=== PATIENT | male | born 1955 | race Caucasian/White ===

== ENCOUNTER 2021-01-27 23:42 | Inpatient (IN) ==
[2021-01-28 01:06] LABS: Partial Thromboplastin Ratio 1.1; Prothrombin Time 10.4 Seconds (9.0-12.0)
[2021-01-28] MEDS ORDERED: cefTRIAXone SODIUM 2,000 MG/70 ML BAG IV STA (01:06)
[2021-01-28 01:13] LABS: Albumin Level 3.7 gm/dl (3.4-5.0); BUN Creatinine Ratio 19.7 (10-20); Calcium 9.3 mg/dl (8.5-10.1); Creatinine Clr Calc Pharmacy 103.4 ml/min; Est GFR (African American) 98.3 ml/min; Est GFR (Non-African American) 84.9 ml/min; Potassium 3.9 mmol/L (3.5-5.1)
--- NOTE | 2021-01-28 01:22 | Emergency Department Note ---
History of Present Illness General Chief complaint: Shortness of Breath/Dyspnea Stated complaint: PNEUMONIA - SOB Time Seen by Provider: 01/28/21 00:57 Source: patient Mode of arrival: ambulatory Limitations: no limitations History of Present Illness Provider complaint: trouble breathing Onset (ago): day(s) 4 Associated symptoms: + loss of appetite, + malaise and + shortness of breath; no chest pain, no cough, no fever/chills, no headaches, no nausea/vomiting or no syncope Treatments prior to arrival: none This is a 65-year-old male presents emergency department with increased shortness of breath of the last 4 days. Patient denies fevers, chills, nasal congestion, rhinorrhea, or cough. He denies any accompanying chest pain or pressure. Patient states he did see his PCP today and was sent for outpatient labs and a chest x-ray. Patient states he was told the chest x-ray showed pneumonia. Patient is still awaiting the results of his outpatient Covid test. Patient states he was at a [employer] over the weekend with approximately 150 young people. He states no one seemed overtly ill there. He denies any prior history of tobacco abuse, asthma, or COPD. Patient states he takes medication for blood pressure and swelling in his legs. He states the swelling is not been worse recently. He states his appetite has been diminished, however he is still eating and drinking. Patient states he feels markedly improved with the oxygen in place. Oxygen placed on the patient by nursing staff as his initial room air saturation was 84%. Patient states shortness of breath was worse with exertion and worse trying to lay flat at night to sleep. No prior history of CHF or VA. Pt seen during a time of high acuity and national emergency pandemic while wearing PPE. Home Medications Medication Instructions Recorded Confirmed Type aspirin 81 mg tablet,delayed 81 mg PO HS 01/28/21 01/28/21 History release atorvastatin 20 mg tablet 20 mg PO HS 01/28/21 01/28/21 History losartan 50 mg-hydrochlorothiazide 1 tab PO QAM 01/28/21 01/28/21 History 12.5 mg tablet Allergies Allergy/AdvReac Type Severity Reaction Status Date / Time Penicillins Allergy Unknown HAPPENED Verified 01/28/21 01:25 AN SMALL CHILD Past Med/Surg History Social History Smoking Status: Never smoker Hx Alcohol Use: No Hx Substance Use: No Preferred Language: Swedish Communication Ability: Effective Automatic Trimming Sewer Required: No Beliefs That Will Affect Care: None Current Living Situation: Spouse Other Information That Helps Us Care for You: No Feels Safe at Home: Yes Safety Concerns: Feels Safe At This Time Assistive Devices: None Review of Systems A total of 10 systems reviewed and were otherwise negative All systems reviewed & are unremarkable except as noted in HPI & below Physical Exam Vital Signs Vital Signs - 24 hr 01/27/21 23:45 01/28/21 01:30 01/28/21 02:17 Temperature 36.9 C Temperature Source Temporal Artery Scan Pulse Rate 116 H 102 H Pulse Rate from SpO2 Sensor 101 H Respiratory Rate 22 22 Respiratory Effort / Characteristics Non-Labored Respiratory Depth Normal Respiratory Pattern Regular Blood Pressure 147/92 H Blood Pressure Mean 110 Pulse Oximetry 84 L 88 L 92 Oxygen Delivery Method Room Air Nasal Cannula Oxymask Oxymask Oxygen Flow Rate 4 9 Sepsis Recent Fever Within 48 Hours No Sepsis New/Unexplained Change in Mental Status N/A Sepsis Action Taken by Nursing No Action Required Oxygen Flow Rate - Titration 8 Fraction of Inspired Oxygen - Titration Pulse Oximetry Post Tiitration 92 01/28/21 02:20 01/28/21 02:24 01/28/21 02:30 Temperature Temperature Source Pulse Rate 99 H 101 H Pulse Rate from SpO2 Sensor 99 H 99 H Respiratory Rate 19 35 H Respiratory Effort / Characteristics Respiratory Depth Respiratory Pattern Blood Pressure 155/94 H Blood Pressure Mean 114 Pulse Oximetry 94 96 95 Oxygen Delivery Method Oxymask Oxymask Oxymask Oxygen Flow Rate 6 9 6 Sepsis Recent Fever Within 48 Hours Sepsis New/Unexplained Change in Mental Status Sepsis Action Taken by Nursing Oxygen Flow Rate - Titration Fraction of Inspired Oxygen - Titration 6 Pulse Oximetry Post Tiitration 94 GENERAL: alert, well appearing, well nourished, no distress, non-toxic, nasal cannula in place EYE EXAM: normal conjunctiva, PERRL and EOM's grossly intact OROPHARYNX: no exudate, no erythema, lips, buccal mucosa, and tongue normal and mucous membranes are moist NECK: supple, no nuchal rigidity, no adenopathy, non-tender LUNGS: Clear to auscultation. Normal chest wall mechanics, no w/r/r HEART: no murmurs, S1 normal and S2 normal ABDOMEN: abdomen soft, non-tender, normo-active bowel sounds, no masses, no rebound or guarding. BACK: Back is symmetrical on inspection and there is no deformity, no midline tenderness, no CVA tenderness. SKIN: no rashes and no bruising UPPER EXTREMITIES: upper extremities are grossly normal. FROM, nml pulses b/l. LOWER EXTREMITIES: No pitting edema. FROM, nml pulses b/l. NEURO EXAM: Normal sensorium, cranial nerves II-XII grossly intact, normal speech, no gross weakness of arms, no gross weakness of legs. Gross sensation intact. Course Course 0142: Outpatient records obtained from earlier today show an outpatient chest x- ray, 2 view, read by outside radiology as an elevated left hemidiaphragm, hazy bibasilar opacities which may represent pneumonia. Correlate with Covid testing. Outpatient chest EKG was also reviewed, and labs of which were only partially resulted. Patient's BMP was normal with the exception of an elevated glucose at 145. Other labs still pending. 0205: Case discussed with Dr. Brooks, [facility]. Patient's oxygenation is improved here on anoxia mask. Patient denies any chest pain. Several additional labs are still pending as the lab chemistry analyzer machine is currently malfunctioning and unable to run. D-dimer was added on late and is still pending as a result of this. 0430: Received call from outside radiology group who read the patient's CT of the chest as ordered by the hospitalist. CT positive for bilateral PEs and evidence of right heart strain. 0445: Patient updated on PE diagnosis and CT findings. Patient continues to deny chest pain or dizziness, states he feels markedly improved with the oxygen in place. Administered Medications Heparin Sodium/Dextrose (Heparin Sodium/Dextrose) 25,000 units in 500 mls @ 33 mls/hr IV .[id number] [facility]; Protocol Stop: 02/27/21 04:59 Last Titration: 01/28/21 06:42 Dose: 33 units/hr, 0.7 mls/hr Documented by: [id number] Cosigned by: [id number] Admin: 01/28/21 05:02 Dose: 1,650 units/hr, 33 mls/hr Documented by: [id number] Cosigned by: [id number] Discontinued Medications Heparin Sodium (Porcine) (Heparin Sod (Porcine) 1000 Unit/Ml) 1 units IV NOW ONE Stop: 01/28/21 04:48 Last Admin: 01/28/21 05:01 Dose: 7,000 units Documented by: [id number] Cosigned by: [id number] Heparin Sodium/Dextrose (Heparin Iv Adult Wt-Based Standard With Bolus Protocol) 1 ea IV NOW STA; Protocol Stop: 01/28/21 04:32 Last Admin: 01/28/21 05:03 Dose: 1 ea Documented by: [id number] Ceftriaxone Sodium (Rocephin) 2,000 mg in 70 mls @ 140 mls/hr IV NOW STA Stop: 01/28/21 01:35 Last Infusion: 01/28/21 02:40 Dose: 0 mls/hr Documented by: [id number] Admin: 01/28/21 02:10 Dose: 140 mls/hr Documented by: [id number] Methylprednisolone 20 mg/ (Syringe) 0.32 mls @ 1.5 mls/min IV NOW STA Stop: 01/28/21 02:38 Last Admin: 01/28/21 03:06 Dose: 1.5 mls/min Documented by: [id number] Lactated Ringer's (Lr) 1,000 mls @ 250 mls/hr IV .Q4H STA Stop: 01/28/21 06:36 Last Admin: 01/28/21 03:06 Dose: 250 mls/hr Documented by: [id number] Doxycycline Hyclate 100 mg/ (Dextrose) 110 mls @ 50 mls/hr IV NOW STA Stop: 01/28/21 04:46 Last Infusion: 01/28/21 06:51 Dose: 0 mls/hr Documented by: [id number] Admin: 01/28/21 03:05 Dose: 50 mls/hr Documented by: [id number] Ioversol (Optiray 320 125ml) 125 ml IV ONCE ONE Stop: 01/28/21 03:38 Last Admin: 01/28/21 03:37 Dose: 111 ml Documented by: [id number] Ipratropium Wishon (Ipratropium Wishon Neb Soln 0.02% 2.5 Ml Vial) 0.5 mg INH ONE STA Stop: 01/28/21 02:47 Last Admin: 01/28/21 03:08 Dose: 0.5 mg Documented by: [id number] Levalbuterol HCl (Levalbuterol 1.25mg/0.5ml Neb) 1.25 mg INH ONE STA Stop: 01/28/21 02:48 Last Admin: 01/28/21 03:08 Dose: 1.25 mg Documented by: [id number] Losartan Potassium (Losartan Potassium 25 Mg Tab) 25 mg PO NOW STA Stop: 01/28/21 02:44 Last Admin: 01/28/21 03:05 Dose: 25 mg Documented by: [id number] Critical Care Time Critical Care Time: Yes Total Critical Care Time: 45 Critical care of 45 min performed to assess and manage high likelihood of life- threatening hypoxia, involving labs and imaging performed with assessment to evaluate PE with RV strain diagnosis with frequent reassessment. This time includes bedside time, treatment discussions with patient/family/consultants, documentation time and excludes procedure time. Medical Decision Making Differential Diagnosis Differential diagnoses includes but is not limited to pneumonia, bronchitis, COPD/Asthma exacerbation, pneumothorax, pulmonary embolism, congestive heart failure, acute coronary syndrome Medical Records Attestation: I reviewed the patient's medical records. Home Medications Current Medication List: was personally reviewed by me Laboratory Data Attestation: I reviewed the patient's lab results. Result diagrams: 01/28/21 00:38 01/28/21 00:38 Lab Results 01/27/21 01/27/21 01/28/21 Range/Units 23:52 23:52 00:38 WBC 14.33 H (4.8-10.8) K/uL RBC 5.29 (4.7-6.1) M/uL Hgb 15.6 (14.0-18.0) g/dL Hct 45.7 (42-52) % MCV 86.4 (80-100) fL MCH 29.5 (25-34) pg MCHC 34.1 (32-36) g/dL RDW Std Deviation 42.8 (36.4-46.3) fL RDW Coeff of Efren 13.6 (11.5-14.5) % Plt Count 263 (130-400) K/uL MPV 11.0 H (7.4-10.4) fL Immature Gran % (Auto) 0.3 % Neut % (Auto) 77.3 % Lymph % (Auto) 13.4 % [place] % (Auto) 8.2 % Eos % (Auto) 0.7 % Baso % (Auto) 0.1 % Neut # (Auto) 11.07 H (1.4-6.5) K/uL Lymph # (Auto) 1.92 (1.2-3.4) K/uL [place] # (Auto) 1.17 H (0.11-0.59) K/uL Eos # (Auto) 0.10 (0-0.5) K/uL Baso # (Auto) 0.02 (0-0.2) K/uL Immature Gran # (Auto) 0.05 H (0.00-0.02) K/uL PT (9.0-12.0) Seconds INR (0.9-1.1) APTT (21.0-31.0) Seconds PTT Ratio D-Dimer (0-500) ug/L FEU Sodium (136-145) mmol/L Potassium (3.5-5.1) mmol/L Chloride (98-107) mmol/L Carbon Dioxide (21-32) mmol/L Anion Gap (3-11) BUN (7-18) mg/dl Creatinine (0.6-1.4) mg/dl Est Cr Clr Drug Dosing ml/min Est GFR ( Amer) ml/min Est GFR (Non-Af Amer) ml/min BUN/Creatinine Ratio (10-20) Glucose (70-99) mg/dl Calcium (8.5-10.1) mg/dl Magnesium (1.8-2.4) mg/dl Total Bilirubin (0.2-1) mg/dl AST (15-37) U/L ALT (12-78) U/L Alkaline Phosphatase (45-117) U/L Troponin I (0-0.045) ng/ml Total Protein (6.4-8.2) gm/dl Albumin (3.4-5.0) gm/dl Globulin (2.5-4.0) gm/dl Albumin/Globulin Ratio (0.9-2) Procalcitonin (0-0.5) ng/ml TSH (0.300-4.500) uIu/ml COVID-19 Eval Order Covid19 at [facility] SARS-CoV-2 (PCR) NEGATIVE (Negative) 01/28/21 01/28/21 01/28/21 Range/Units 00:38 00:38 02:00 WBC (4.8-10.8) K/uL RBC (4.7-6.1) M/uL Hgb (14.0-18.0) g/dL Hct (42-52) % MCV (80-100) fL MCH (25-34) pg MCHC (32-36) g/dL RDW Std Deviation (36.4-46.3) fL RDW Coeff of Efren (11.5-14.5) % Plt Count (130-400) K/uL MPV (7.4-10.4) fL Immature Gran % (Auto) % Neut % (Auto) % Lymph % (Auto) % [place] % (Auto) % Eos % (Auto) % Baso % (Auto) % Neut # (Auto) (1.4-6.5) K/uL Lymph # (Auto) (1.2-3.4) K/uL [place] # (Auto) (0.11-0.59) K/uL Eos # (Auto) (0-0.5) K/uL Baso # (Auto) (0-0.2) K/uL Immature Gran # (Auto) (0.00-0.02) K/uL PT 10.4 (9.0-12.0) Seconds INR 1.0 (0.9-1.1) APTT 28.0 (21.0-31.0) Seconds PTT Ratio 1.1 D-Dimer (0-500) ug/L FEU Sodium 138 (136-145) mmol/L Potassium 3.9 (3.5-5.1) mmol/L Chloride 107 (98-107) mmol/L Carbon Dioxide 23 (21-32) mmol/L Anion Gap 8.0 (3-11) BUN 19 H (7-18) mg/dl Creatinine 0.95 (0.6-1.4) mg/dl Est Cr Clr Drug Dosing 103.4 ml/min Est GFR ( Amer) 98.3 ml/min Est GFR (Non-Af Amer) 84.9 ml/min BUN/Creatinine Ratio 19.7 (10-20) Glucose 131 H (70-99) mg/dl Calcium 9.3 (8.5-10.1) mg/dl Magnesium 2.0 (1.8-2.4) mg/dl Total Bilirubin 0.7 (0.2-1) mg/dl AST 26 (15-37) U/L ALT 41 (12-78) U/L Alkaline Phosphatase 51 (45-117) U/L Troponin I 0.179 H* (0-0.045) ng/ml Total Protein 8.0 (6.4-8.2) gm/dl Albumin 3.7 (3.4-5.0) gm/dl Globulin 4.3 H (2.5-4.0) gm/dl Albumin/Globulin Ratio 0.9 (0.9-2) Procalcitonin < 0.05 (0-0.5) ng/ml TSH (0.300-4.500) uIu/ml COVID-19 Eval Order SARS-CoV-2 (PCR) (Negative) 01/28/21 01/28/21 Range/Units 02:00 02:02 WBC (4.8-10.8) K/uL RBC (4.7-6.1) M/uL Hgb (14.0-18.0) g/dL Hct (42-52) % MCV (80-100) fL MCH (25-34) pg MCHC (32-36) g/dL RDW Std Deviation (36.4-46.3) fL RDW Coeff of Efren (11.5-14.5) % Plt Count (130-400) K/uL MPV (7.4-10.4) fL Immature Gran % (Auto) % Neut % (Auto) % Lymph % (Auto) % [place] % (Auto) % Eos % (Auto) % Baso % (Auto) % Neut # (Auto) (1.4-6.5) K/uL Lymph # (Auto) (1.2-3.4) K/uL [place] # (Auto) (0.11-0.59) K/uL Eos # (Auto) (0-0.5) K/uL Baso # (Auto) (0-0.2) K/uL Immature Gran # (Auto) (0.00-0.02) K/uL PT (9.0-12.0) Seconds INR (0.9-1.1) APTT (21.0-31.0) Seconds PTT Ratio D-Dimer 6510 H* (0-500) ug/L FEU Sodium (136-145) mmol/L Potassium (3.5-5.1) mmol/L Chloride (98-107) mmol/L Carbon Dioxide (21-32) mmol/L Anion Gap (3-11) BUN (7-18) mg/dl Creatinine (0.6-1.4) mg/dl Est Cr Clr Drug Dosing ml/min Est GFR ( Amer) ml/min Est GFR (Non-Af Amer) ml/min BUN/Creatinine Ratio (10-20) Glucose (70-99) mg/dl Calcium (8.5-10.1) mg/dl Magnesium (1.8-2.4) mg/dl Total Bilirubin (0.2-1) mg/dl AST (15-37) U/L ALT (12-78) U/L Alkaline Phosphatase (45-117) U/L Troponin I 0.215 H* (0-0.045) ng/ml Total Protein (6.4-8.2) gm/dl Albumin (3.4-5.0) gm/dl Globulin (2.5-4.0) gm/dl Albumin/Globulin Ratio (0.9-2) Procalcitonin (0-0.5) ng/ml TSH 1.480 (0.300-4.500) uIu/ml COVID-19 Eval Order SARS-CoV-2 (PCR) (Negative) Imaging Data My Impression: X-ray: I interpreted the following studies. Chest: A single view study of the chest was reviewed and was negative for cardiomegaly, focal infiltrate, effusion, pulmonary edema, or wide mediastinum. Possible evolving LLL infiltrate. Radiologist's Impression: Chest X-Ray 01/27/21 23:48 SINGLE VIEW CHEST CLINICAL HISTORY: Dyspnea. FINDINGS: An AP, portable, upright chest radiograph is obtained. No prior studies are available for comparison at the time of dictation. The heart is mildly enlarged. The pulmonary vasculature is noncongested. There is elevation of the left hemidiaphragm and bibasilar atelectasis. The lungs and pleural spaces are otherwise clear. No pneumothorax is seen. The bony thorax is grossly intact. IMPRESSION: Mild cardiomegaly with no acute cardiopulmonary abnormality. ACT 112: Negative or not required by law. Electronically signed by: Toro Quan M.D. 01/28/2021 7:16 AM CTA chest: No prior exam for comparison. Pulmonary embolus starting at the level of the distal right pulmonary artery extending into the proximal upper lobe, middle lobe and lower lobe pulmonary artery and into some of the proximal segmental pulmonary arteries. On the left, there is a pulmonary embolus in the distal left pulmonary artery extending into the left upper lobe and left lower lobe pulmonary arteries and into some of the mid and distal segmental pulmonary arteries in the left upper lobe and left lower lobe. The RV/LV ratio is 1.4 raising the concern for right-sided cardiac strain. The visualized upper abdominal structures are unremarkable. Left lower lobe atelectasis otherwise no acute cardiopulmonary disease. No pleural effusion or pneumothorax. Normal cardiac size with coronary artery calcifications. Multilevel degenerative disease of the spine. Radiologist: Justa Sanchez MD ECG Data Attestation: I personally reviewed and interpreted this ECG as follows: Indication: + SOB/dyspnea Rate (beats per minute): 108 Rhythm: + sinus tachycardia ECG Intervals/blocks: + First degree AV block, + Normal QRS and + Prolonged QT ECG [place]: + Normal ECG ST segments: + T-wave inversions (III, aVF) MDM Narrative This is a 65-year-old male who presents due to concern for increased shortness of breath. Patient found to be hypoxic on arrival and was immediately placed on supplemental oxygen with marked improvement of his symptoms and oxygen level. Patient had outpatient labs and imaging performed earlier today, chest x-ray was read as pneumonia. Patient with no prior pulmonary history. Labs drawn and sent on the patient, and he was found to have an elevated white count. Given vague symptoms evolving over the week with his shortness of breath, initially I ordered IV Rocephin. However, I was unable to add azithromycin due to prolonged QT noted on his EKG. This was discussed with the hospitalist and doxycycline was added. Due to lack of other evolving URI symptoms, I added a D-dimer, un fortunately in the middle of the night the chemistry analyzer machine in the lab was unavailable and broke down, this caused a delay in obtaining the D-dimer and other CMP results. Eventually when this resulted it was elevated, and the admitting hospitalist had already added a CT of the chest when I saw it. CT results were called to me in the emergency department with significant pulmonary embolism bilaterally with evidence of right heart strain, likely explaining the patient's elevated troponin which I felt initially may be due to his tachycardia and infection. Patient continued to remain well-appearing here while maintained on supplemental oxygen via oxygen mask. Denied chest pain, dizziness, nausea. Hospitalist updated on CT findings and I added a heparin drip on the patient. Patient was updated on CT results and need for additional evaluation regarding this new finding. Patient remained hemodynamically stable in the emergency room. An order was placed for continuous cardiac monitoring. The monitor shows a rate of _97__ with _normal sinus_ rhythm. Impression & Plan Dyspnea, Hypoxia, Pulmonary embolism, bilateral, Elevated troponin Discharge Plan Visit Data Chief Complaint: Shortness of Breath/Dyspnea Stated Complaint: PNEUMONIA - SOB ED Provider: Jordyn Koch Discharge Problem: Dyspnea, Hypoxia, Pulmonary embolism, bilateral, Elevated troponin Patient Disposition: Admitted As Inpatient Condition: Good Discharge Instructions Interventions: ED Discharge Assessment Last Done: 01/28/21 05:32
[2021-01-28 01:23] LABS: Albumin Globulin Ratio 0.9 (0.9-2); Bilirubin,Total 0.7 mg/dl (0.2-1); Globulin 4.3 gm/dl (2.5-4.0); Troponin I 0.179 ng/ml (0-0.045)
[2021-01-28 01:29] LABS: Basophils # (auto) 0.02 K/uL (0-0.2); Basophils % (auto) 0.1 %; Eosinophils % (auto) 0.7 %; Hematocrit (blood only) 45.7 % (42-52); Hemoglobin 15.6 g/dL (14.0-18.0); Immature Granulocytes # (auto) 0.05 K/uL (0.00-0.02); Immature Granulocytes % (auto) 0.3 %; Lymphocytes # (auto) 1.92 K/uL (1.2-3.4); Lymphocytes % (auto) 13.4 %; Mean Corpuscular Hemoglobin 29.5 pg (25-34); Mean Corpuscular Hgb Conc 34.1 g/dL (32-36); Mean Corpuscular Volume 86.4 fL (80-100); Monocytes # (auto) 1.17 K/uL (0.11-0.59); Monocytes % (auto) 8.2 %; Neutrophils # (auto) 11.07 K/uL (1.4-6.5); Neutrophils % (auto) 77.3 %; Platelet Count 263 K/uL (130-400); RDW Coefficient of Variation 13.6 % (11.5-14.5); RDW Standard Deviation 42.8 fL (36.4-46.3); Red Blood Count 5.29 M/uL (4.7-6.1); White Blood Count 14.33 K/uL (4.8-10.8)
[2021-01-28] MEDS ORDERED: DOXYCYCLINE HYCLATE 100 MG in DEXTROSE 5% 100 ML IV STA (02:35)
[2021-01-28] MEDS ORDERED: methylPREDNISolone 20 MG in SYRINGE 0 ML IV STA (02:37)
[2021-01-28] MEDS ORDERED: LACTATED RINGER'S 1,000 ML IV STA (02:37)
[2021-01-28] MEDS ORDERED: XOPENEX/ATROVENT 1.25mg/0.5MG NEB COMBO NEB STA (02:40)
[2021-01-28] MEDS ORDERED: LOSARTAN POTASSIUM 25 MG TAB PO STA (02:43)
[2021-01-28] MEDS ORDERED: IPRATROPIUM BROMIDE NEB SOLN 0.02% 2.5 ML VIAL INH STA (02:46)
[2021-01-28] MEDS ORDERED: LEVALBUTEROL 1.25MG/0.5ML NEB INH STA (02:47)
[2021-01-28 03:20] LABS: D Dimer 6510 ug/L FEU (0-500)
[2021-01-28] MEDS ORDERED: OPTIRAY 320 125ml IV ONE (03:37)
[2021-01-28 04:31] LABS: Thyroid Stimulating Hormone 1.48 uIu/ml (0.300-4.500); Troponin I 0.215 ng/ml (0-0.045)
[2021-01-28] MEDS ORDERED: Heparin IV Adult Wt-Based Standard WITH Bolus Protocol IV STA (04:31)
[2021-01-28 04:42] LABS: Base Excess ABG -1.2 mEq/L (-9-1.8); HCO3 ABG 22 mmol/L (19-24); Oxygen Saturation ABG 94.5 % (90-95); PCO2 ABG 33 mmHg (35-46); PO2 ABG 67 mmHg (80-95); pH ABG 7.44 (7.35-7.45)
[2021-01-28] MEDS ORDERED: HEPARIN SOD (PORCINE) 1000 UNIT/ML IV ONE (04:47)
[2021-01-28 04:57] LABS: Allen Test Pos (Pos)
[2021-01-28] MEDS: HEPARIN SODIUM/DEXTROSE 25,000 UNITS/500 ML BAG IV SCH ×2 (05:02→20:35)
--- NOTE | 2021-01-28 05:58 | History & Physical Report ---
Date of Service January 28, 2021 Assessment & Plan (1) Acute hypoxemic respiratory failure: Plan: Secondary to pulmonary embolism with possible RV strain on initial CT read Unprovoked initial event Rule out LE clot as source Troponin elevation secondary to above, tachycardia hypertension, elevated secondary to anxiety/discomfort hyperlipidemia on statin Rx Hyperglycemia rule out DM PCU Supplemental O2 IV Heparin LE Dopplers rule out DVT Defer discussion regarding options for home anticoagulation to AM provider and patient. Follow troponin, TTE if with progression Check hemoglobin A1c DVT prophylaxis. IV Heparin Full code Text document was generated using [employer] voice recognition software. It may contain grammatical or spelling errors. Kindly contact undersigned for clarification of any documentation item in question. History of Present Illness Chief Complaint: Shortness of breath Primary Care Provider: Jeyson King MD History obtained from patient and records. Medical history significant for hypertension, hyperlipidemia. 4 days ago, patient noted shortness of breath worse on exertion while helping out at a family gathering at home. No cough symptoms. Although patient thinks he may have the flu. No chest pain. No leg pain/swelling. No recent illness leading to immobility or vehicular travel of prolonged duration. No unusual weight loss. No known recent COVID-19 contacts. Patient completed COVID-19 vaccination. Patient seen at PCPs office yesterday. O2 sats 90% on room air. Patient tachycardic. Outpatient CXR showed elevated left hemidiaphragm with hazy bibasilar opacities which may represent pneumonia. Outpatient COVID-19 test requested by PCP. Patient consulted ER due to worsening symptoms. Ceftriaxone given at the ER for possible sepsis. IV Heparin later initiated with note of pulmonary embolism on CT. No prior personal/known family history of blood clots as per patient account. 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 Allergies Allergy/AdvReac Type Severity Reaction Status Date / Time Penicillins Allergy Unknown HAPPENED Verified 01/28/21 01:25 AN SMALL CHILD Home Medications Medication Instructions Recorded Confirmed Type aspirin 81 mg tablet,delayed 81 mg PO HS 01/28/21 01/28/21 History release atorvastatin 20 mg tablet 20 mg PO HS 01/28/21 01/28/21 History losartan 50 mg-hydrochlorothiazide 1 tab PO QAM 01/28/21 01/28/21 History 12.5 mg tablet Past Med/Surg History Social History Smoking Status: Never smoker Hx Alcohol Use: No Hx Substance Use: No Preferred Language: Citizen Of [place] Communication Ability: Effective 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: No Beliefs That Will Affect Care: None Current Living Situation: Spouse Other Information That Helps Us Care for You: No Feels Safe at Home: Yes Safety Concerns: Feels Safe At This Time Assistive Devices: None Review of Systems Review of Systems: As per HPI, all 10 systems reviewed, all other ROS negative Physical Exam Physical Exam: GENERAL: Comfortable, obese, slightly anxious, no respiratory distress SKIN: Normal color, warm HEENT: Sunburnt face sparing periorbital areas, pink palpebral conjunctivae, no ptosis, dry buccal mucosa, nasal cannula in place NECK : Supple, short neck, no tenderness CHEST : Decreased breath sounds , no tenderness HEART : Tachycardic, no obvious murmurs ABDOMEN: Some distention, nontender EXTREMITIES : No LE swelling/tenderness, no other conspicuous deformities noted NEUROLOGIC : Coherent, no facial asymmetry, no other gross focality Results & Data Results & Data ([facility]) Vital Signs (Past 12 Hours) Vital Signs Temp Pulse Pulse Resp BP Pulse Ox 01/28/21 05:30 98 H 129/93 90 01/28/21 05:00 100 H 01/28/21 04:30 101 H 92 01/28/21 04:00 94 H 130/91 94 01/28/21 03:38 103 H 93 01/28/21 03:09 101 H 16 91 01/28/21 03:00 91 H 13 94 01/28/21 02:30 101 H 35 H 155/94 H 95 01/28/21 02:24 96 01/28/21 02:20 99 H 19 94 01/28/21 02:17 102 H 22 92 01/28/21 01:30 88 L 01/27/21 23:45 36.9 C 116 H 22 147/92 H 84 L Laboratory Results Laboratory Results WBC 14.33 K/uL (4.8-10.8) H 01/28/21 00:38 RBC 5.29 M/uL (4.7-6.1) 01/28/21 00:38 Hgb 15.6 g/dL (14.0-18.0) 01/28/21 00:38 Hct 45.7 % (42-52) 01/28/21 00:38 MCV 86.4 fL (80-100) 01/28/21 00:38 MCH 29.5 pg (25-34) 01/28/21 00:38 MCHC 34.1 g/dL (32-36) 01/28/21 00:38 RDW Std Deviation 42.8 fL (36.4-46.3) 01/28/21 00:38 RDW Coeff of Efren 13.6 % (11.5-14.5) 01/28/21 00:38 Plt Count 263 K/uL (130-400) 01/28/21 00:38 MPV 11.0 fL (7.4-10.4) H 01/28/21 00:38 Immature Gran % (Auto) 0.3 % 01/28/21 00:38 Neut % (Auto) 77.3 % 01/28/21 00:38 Lymph % (Auto) 13.4 % 01/28/21 00:38 Will % (Auto) 8.2 % 01/28/21 00:38 Eos % (Auto) 0.7 % 01/28/21 00:38 Baso % (Auto) 0.1 % 01/28/21 00:38 Neut # (Auto) 11.07 K/uL (1.4-6.5) H 01/28/21 00:38 Lymph # (Auto) 1.92 K/uL (1.2-3.4) 01/28/21 00:38 Will # (Auto) 1.17 K/uL (0.11-0.59) H 01/28/21 00:38 Eos # (Auto) 0.10 K/uL (0-0.5) 01/28/21 00:38 Baso # (Auto) 0.02 K/uL (0-0.2) 01/28/21 00:38 Immature Gran # (Auto) 0.05 K/uL (0.00-0.02) H 01/28/21 00:38 PT 10.4 Seconds (9.0-12.0) 01/28/21 00:38 INR 1.0 (0.9-1.1) 01/28/21 00:38 APTT 28.0 Seconds (21.0-31.0) 01/28/21 00:38 PTT Ratio 1.1 01/28/21 00:38 D-Dimer 6510 ug/L FEU (0-500) H* 01/28/21 02:00 ABG pH 7.44 (7.35-7.45) 01/28/21 04:29 ABG pCO2 33 mmHg (35-46) L 01/28/21 04:29 ABG pO2 67 mmHg (80-95) L 01/28/21 04:29 ABG HCO3 22 mmol/L (19-24) 01/28/21 04:29 ABG O2 Saturation 94.5 % (90-95) 01/28/21 04:29 ABG Base Excess -1.2 mEq/L (-9-1.8) 01/28/21 04:29 Georgi Test Pos (Pos) 01/28/21 04:29 Oxygen Given 6L 01/28/21 04:29 Sodium 138 mmol/L (136-145) 01/28/21 00:38 Potassium 3.9 mmol/L (3.5-5.1) 01/28/21 00:38 Chloride 107 mmol/L (98-107) 01/28/21 00:38 Carbon Dioxide 23 mmol/L (21-32) 01/28/21 00:38 Anion Gap 8.0 (3-11) 01/28/21 00:38 BUN 19 mg/dl (7-18) H 01/28/21 00:38 Creatinine 0.95 mg/dl (0.6-1.4) 01/28/21 00:38 Est Cr Clr Drug Dosing 103.4 ml/min 01/28/21 00:38 Est GFR ( Amer) 98.3 ml/min 01/28/21 00:38 Est GFR (Non-Af Amer) 84.9 ml/min 01/28/21 00:38 BUN/Creatinine Ratio 19.7 (10-20) 01/28/21 00:38 Glucose 131 mg/dl (70-99) H 01/28/21 00:38 Lactate 0.9 mmol/L (0.4-2.0) 01/28/21 04:29 Calcium 9.3 mg/dl (8.5-10.1) 01/28/21 00:38 Magnesium 2.0 mg/dl (1.8-2.4) 01/28/21 00:38 Total Bilirubin 0.7 mg/dl (0.2-1) 01/28/21 00:38 AST 26 U/L (15-37) 01/28/21 00:38 ALT 41 U/L (12-78) 01/28/21 00:38 Alkaline Phosphatase 51 U/L (45-117) 01/28/21 00:38 Troponin I 0.215 ng/ml (0-0.045) H* 01/28/21 02:02 Total Protein 8.0 gm/dl (6.4-8.2) 01/28/21 00:38 Albumin 3.7 gm/dl (3.4-5.0) 01/28/21 00:38 Globulin 4.3 gm/dl (2.5-4.0) H 01/28/21 00:38 Albumin/Globulin Ratio 0.9 (0.9-2) 01/28/21 00:38 Procalcitonin < 0.05 ng/ml (0-0.5) 01/28/21 02:00 TSH 1.480 uIu/ml (0.300-4.500) 01/28/21 02:02 COVID-19 Eval Order Covid19 at [facility] 01/27/21 23:52 SARS-CoV-2 (PCR) NEGATIVE (Negative) 01/27/21 23:[address] angio chest initial read: No prior examfor comparison. Pulmonaryembolus starting at the level of the distal right pulmonaryarteryextending into the proximal upper lobe, middle lobe and lower lobe pulmonaryarteryand into some of the proximal segmental pulmonaryarteries. On the left, there is a pulmonaryembolus in the distal left pulmonary arteryextending into the left upper lobe and left lower lobe pulmonaryarteries and into some of the mid distal segmental pulmonaryarteries in the left upper lobe and left lower lobe. The RV/LVratio is 1.4 raising the concern for a right-sided cardiac strain. The visualized upper abdominal structures are unremarkable. Left lower lobe atelectasis otherwise no acute cardiopulmonarydisease. No pleural effusion or pneumothorax. Normal cardiac size with coronaryarterycalcifications. Multilevel degenerative disease of the spine. EKG as per my interpretation: Rate 1 10, sinus tachycardia, normal axis, 1 AVB, T wave abnormalities inferior leads Code Status & VTE Plan VTE Prophylaxis Plan VTE Prophylaxis will be ordered: Yes
[2021-01-28] MEDS ORDERED: ACETAMINOPHEN 325 MG TAB PO PRN (06:15)
[2021-01-28] MEDS ORDERED: IPRATROPIUM BROMIDE NEB SOLN 0.02% 2.5 ML VIAL INH SCH (06:15)
[2021-01-28] MEDS ORDERED: LEVALBUTEROL 1.25MG/0.5ML NEB INH SCH (06:15)
[2021-01-28] MEDS ORDERED: PROMETHAZINE HCL 12.5 MG in SODIUM CHLORIDE 0.9% 50 ML IV PRN (06:15)
[2021-01-28] MEDS ORDERED: traMADol HCL 50 MG TABLET PO PRN (06:15)
--- NOTE | 2021-01-28 07:16 | CT Scan Report ---
CT ANGIOGRAM OF THE CHEST CLINICAL HISTORY: Hypoxia. Cough. Dyspnea. COMPARISON STUDY: Chest x-ray dated 01/28/2021. TECHNIQUE: Following the IV administration of 111 cc of Optiray 320, CT angiogram of the chest was pe rformed from the upper abdomen to the thoracic inlet utilizing the pulmonary embolus protocol. Images are reviewed in the axial, sagittal, and coronal planes. 3-D MIPS images are created and assessed. I V contrast was administered without complication. A dose lowering technique was utilized adhering to the principles of ALARA. The examination is motion compromised. CT DOSE: 799.10 mGy.cm FINDINGS: Thyroid: Imaged portions of the thyroid gland are normal in size and attenuation. Thoracic aorta: The thoracic aorta is normal in caliber and demonstrates 4-vessel variant arch anatom y. No dissection is seen. Pulmonary vasculature: The main pulmonary arteries are mildly dilated suggesting pulmonary artery hyp ertension. There is thrombus within the distal right main pulmonary artery. This extends into the rig ht upper, middle, and lower lobar branches. There is segmental and subsegmental pulmonary emboli with in all of these arteries. There is also thrombus within the distal left main pulmonary artery which e xtends into the left upper and left lower lobe branches. Segmental and subsegmental pulmonary emboli are seen within the left upper lobe, the left lower lobe, and the lingula. Heart: The heart is enlarged and without pericardial effusion. The coronary arteries are densely calc ified. Lungs and pleural spaces: Evaluation of the lung parenchyma is significantly degraded by motion artif act. There is elevation of the left hemidiaphragm with segmental atelectasis at the left lung base. N o airspace consolidation or pleural effusion is identified. The trachea and central airways are clear . Mediastinum: There is no mediastinal lymphadenopathy. Hilary: Clear. Axillae: There is no axillary lymphadenopathy. Upper abdomen: A small hiatal hernia is noted. Partially visualized upper abdominal viscera is within normal limits. Skeletal structures: No lytic or blastic bony lesions are seen. Degenerative change is noted in the t horacic spine. IMPRESSION: 1. Extensive bilateral pulmonary embolus as above. 2. There is no airspace consolidation or pleural effusion. 3. Cardiomegaly. 4. Additional findings as above. ACT 112: Negative or not required by law. Electronically signed by: Toro Quan M.D. 01/28/2021 7:15 AM
--- NOTE | 2021-01-28 07:17 | XRay Report ---
SINGLE VIEW CHEST CLINICAL HISTORY: Dyspnea. FINDINGS: An AP, portable, upright chest radiograph is obtained. No prior studies are available for c omparison at the time of dictation. The heart is mildly enlarged. The pulmonary vasculature is nonco ngested. There is elevation of the left hemidiaphragm and bibasilar atelectasis. The lungs and pleura l spaces are otherwise clear. No pneumothorax is seen. The bony thorax is grossly intact. IMPRESSION: Mild cardiomegaly with no acute cardiopulmonary abnormality. ACT 112: Negative or not required by law. Electronically signed by: Toro Quan M.D. 01/28/2021 7:16 AM
[2021-01-28 07:28] LABS: Estimated Average Glucose 128 mg/dl; Hemoglobin A1C 6.1 % (4.5-5.6)
--- NOTE | 2021-01-28 08:52 | Ultrasound Report ---
ULTRASOUND BILATERAL LOWER EXTREMITY VENOUS CLINICAL HISTORY: Pulmonary embolus. COMPARISON STUDY: No priors. TECHNIQUE: Real-time, grayscale, and color Doppler sonography of the deep veins of the right and left lower extremity was performed from the inguinal crease to the calf. Compression and augmentation wer e utilized. FINDINGS: Right lower extremity: There is no sonographic evidence of deep venous thrombosis in the right lower extremity. The common femoral, superficial femoral, and popliteal veins are patent and normally compr essible. The greater saphenous vein and the profunda femoris vein at the junction with the common fem oral vein are clear. The visualized calf veins are patent. Left lower extremity: Nonocclusive thrombus is present in the calf within one of the peroneal veins. The remaining calf vessels appear patent. No above knee deep venous thrombosis is seen in the left lo wer extremity. The common femoral, superficial femoral, and popliteal veins are patent and normally c ompressible. The greater saphenous vein and the profunda femoris vein at the junction with the common femoral vein are clear. IMPRESSION: 1. Nonocclusive deep venous thrombosis is identified in the left calf within 1 of the peroneal veins. 2. No additional foci of deep venous thrombosis are seen in the right or left lower extremity. ACT 112: Negative or not required by law. Electronically signed by: Toro Quan M.D. 01/28/2021 8:50 AM
[2021-01-28] MEDS ORDERED: ENOXAPARIN INJ 40 MG/0.4 ML SYR SQ SCH (09:00)
[2021-01-28 12:00] LABS: Partial Thromboplastin Time 105.3 Seconds (21.0-31.0)
--- NOTE | 2021-01-28 13:33 | Electrocardiogram Report ---
Test Reason : Blood Pressure : / mmHG Vent. Rate : 108 BPM Atrial Rate : 108 BPM P-R Int : 210 ms QRS Dur : 092 ms QT Int : 490 ms P-R-T Axes : 031 025 011 degrees QTc Int : 656 ms Poor data quality, interpretation may be adversely affected Sinus tachycardia with 1st degree A-V block Abnormal ECG No previous ECGs available Confirmed by Sanjeev Finley ([id number]) on 01/28/2021 1:32:53 PM Referred By: REFERRED SELF Confirmed By:Sanjeev Finley
--- NOTE | 2021-01-28 13:53 | Pulmonary Consultation ---
Date of Consultation January 28, 2021 Assessment & Plan (1) Pulmonary embolism, bilateral: (2) Acute hypoxemic respiratory failure: (3) Elevated troponin: Attending: Dr. Cervantes Impression: This is a 65-year-old male with extensive bilateral pulmonary emboli. Patient also has a nonocclusive popliteal DVT. He was placed on heparin drip weight-based protocol. Is no prior history of thrombotic disease. He is a non-smoker. He uses no testosterone or other hormonal supplements. He is not on any herbal supplements. This appears to be an unprovoked event. No family history of unprovoked clot. Recommendation: 1. Bilateral pulmonary emboli: Patient was appropriately placed on heparin infusion with weight-based protocol. There is no evidence of occlusive DVT in his legs. Would recommend that the patient get out of bed to chair and can ambulate as well. Patient has a BMI of 35.7 kg/m. Would be a candidate for DOAC therapy. Echocardiogram did show right heart strain. Continue supplemental oxygen and diurese as tolerated. Continue to monitor on telemetry. Hypercoagulable work-up was not initiated prior to heparin therapy. Would recommend follow-up with hematology as an outpatient upon discharge. 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 Would recommend discharging patient with a CD of his CTA of the chest that he can keep with him when he is traveling. 2. Acute hypoxia: Secondary to extensive pulmonary emboli. Continue with anticoagulation. Discussed with the patient that he may need to be discharged home with oxygen. Would recommend two-step evaluation prior to discharge. 3. Pulmonary hypertension: This appears to be secondary to right heart strain from bilateral pulmonary emboli. Continue with oxygen therapy as well as diuresis as tolerated. Continue to monitor on telemetry. Thank you for including us in the care of this patient. The pulmonary service will sign off at this time. Please feel free to reconsult as needed. Please refer to Dr. Cervantes's addendum for further recommendations and corrections. Supervising Physician Co-Signing Physician Notes Patient seen and examined. EMR reviewed. Discussed with critical care RANCHO and agree with assessment plan as noted. Relatively unprovoked PE. Large clot burden. Evidence of right heart strain on echocardiogram but the patient is normotensive and not particularly tachycardic. We will continue to observe for now. Should he deteriorate, systemic thrombolysis may be appropriate. Follow- up echocardiogram in 3 months as recommended. Age-appropriate cancer screening should be conducted in the outpatient setting. Can congestion to oral anticoagulation within the next several days provided he remains stable. Outpatient treatment for sleep disordered breathing is recommended. Check BNP level for risk stratification. We will continue to follow History of Present Illness Reason for Consultation: Evaluation for pulmonary emboli and right heart strain Requesting Physician: Dr. Cruz Attending Physician: Shon Cruz MD History of Present Illness Attending: Dr. Cervantes This is a 65-year-old male with a past medical history including hyperlipidemia, hypertension. 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 He usually drives no further than 90 minutes at a time. His only other sedentary. Was sitting in a deer stand on Monday for approximately 4 hours. He denies any leg pain or asymmetrical edema. He does report that he started having some shortness of breath. He reported to his primary care office where he saw Dr. Ginette Rodarte who referred him for a chest x-ray. He was then sent home and at approximately midnight began having more shortness of breath. He presented to the emergency department and a CTA of the chest was performed and he was found to have bilateral pulmonary emboli. He was initiated on a heparin drip per weight-based protocol. The patient also had lower extremity Dopplers completed which showed a nonocclusive popliteal DVT and was otherwise clear. Aside from shortness of breath, the patient denies any hemoptysis. He is not aware of any tachyarrhythmia. He never had asymmetrical edema of the lower extremities. He reports that he has had some swelling of the bilateral legs and was placed on losartan/hydrochlorothiazide with effect. Patient has no other history of thromboocclusive events. He did have a grandfather who had a leg clot after having mesh placed. Most likely this was provoked from the surgery. No other history of first-degree relatives with DVTs or pulmonary emboli. Patient is a non-smoker and has never smoked or used tobacco products. He does not use any testosterone or other hormonal supplements. No other herbal supplement use. The patient is vaccinated with Covid vaccination and received [employer] x2+ a booster. He also received his influenza vaccination this year. Allergies Allergy/AdvReac Type Severity Reaction Status Date / Time Penicillins Allergy Unknown HAPPENED Verified 01/28/21 01:25 AN SMALL CHILD Home Medications Medication Instructions Recorded Confirmed Type aspirin 81 mg tablet,delayed 81 mg PO HS 01/28/21 01/28/21 History release atorvastatin 20 mg tablet 20 mg PO HS 01/28/21 01/28/21 History losartan 50 mg-hydrochlorothiazide 1 tab PO QAM 01/28/21 01/28/21 History 12.5 mg tablet Patient History Medical History (Updated 01/28/21 @ 13:42 by Toro Hayes PA-C) Hyperlipidemia Hypertension Surgical History (Updated 01/28/21 @ 13:42 by Toro Hayes PA-C) No significant past surgical history Family History (Updated 01/28/21 @ 13:42 by Toro Hayes PA-C) Grandfather Deep vein thrombosis Had a DVT after surgery Social History Smoking Status: Never smoker Hx Alcohol Use: No Hx Substance Use: No Preferred Language: Iraqi Communication Ability: Effective Charcoal Unloader Required: No Beliefs That Will Affect Care: None Current Living Situation: Spouse Other Information That Helps Us Care for You: No Feels Safe at Home: Yes Safety Concerns: Feels Safe At This Time Assistive Devices: None Review of Systems Review of Systems: All systems reviewed & are unremarkable except as noted in Subjective Physical Exam Physical Exam: GENERAL : No acute distress EYES: No icterus, gaze conjugate NOSE: No evidence of epistaxis. Nasal cannula in place MOUTH: No lesions or candidiasis NECK: Supple LUNGS: CTA B/L, no wheezes, rales or rhonchi. Good inspirational effort HEART: Regular, rate controlled. No appreciation of murmurs gallops or rubs. ABDOMEN: Soft, NT, ND, BS Present EXTREMITIES: No LE edema, pedal pulses intact intact and equal bilaterally NEURO: A&OX3 Results & Data Results & Data ([facility]) Vital Signs (Past 12 Hours) Vital Signs Temp Pulse Pulse Resp BP BP Pulse Ox 01/28/21 12:17 36.6 C 104 H 18 142/93 H 91 01/28/21 07:11 37.3 C 99 H 19 148/96 H 91 01/28/21 06:22 36.5 C 100 H 22 181/101 H 90 01/28/21 05:30 98 H 129/93 90 01/28/21 05:00 100 H 01/28/21 04:30 101 H 92 01/28/21 04:00 94 H 130/91 94 01/28/21 03:38 103 H 93 01/28/21 03:09 101 H 16 91 01/28/21 03:00 91 H 13 94 01/28/21 02:30 101 H 35 H 155/94 H 95 01/28/21 02:24 96 01/28/21 02:20 99 H 19 94 01/28/21 02:17 102 H 22 92 Laboratory Results 01/28/21 00:38 01/28/21 00:38 01/28/21 01/28/21 01/28/21 00:38 02:02 09:06 Troponin I 0.179 H* 0.215 H* 0.115 H* Diagnostic Findings Chest X-Ray 01/27/21 23:48 SINGLE VIEW CHEST CLINICAL HISTORY: Dyspnea. FINDINGS: An AP, portable, upright chest radiograph is obtained. No prior studies are available for comparison at the time of dictation. The heart is mildly enlarged. The pulmonary vasculature is noncongested. There is elevation of the left hemidiaphragm and bibasilar atelectasis. The lungs and pleural spaces are otherwise clear. No pneumothorax is seen. The bony thorax is grossly intact. IMPRESSION: Mild cardiomegaly with no acute cardiopulmonary abnormality. ACT 112: Negative or not required by law. Electronically signed by: Toro Quan M.D. 01/28/2021 7:16 AM Chest CTA 01/28/21 03:10 CT ANGIOGRAM OF THE CHEST CLINICAL HISTORY: Hypoxia. Cough. Dyspnea. COMPARISON STUDY: Chest x-ray dated 01/28/2021. TECHNIQUE: Following the IV administration of 111 cc of Optiray 320, CT ang iogram of the chest was performed from the upper abdomen to the thoracic inlet utilizing the pulmonary embolus protocol. Images are reviewed in the axial, sagittal, and coronal planes. 3-D MIPS images are created and assessed. IV contrast was administered without complication. A dose lowering technique was utilized adhering to the principles of ALARA. The examination is motion compromised. CT DOSE: 799.10 mGy.cm FINDINGS: Thyroid: Imaged portions of the thyroid gland are normal in size and attenuation. Thoracic aorta: The thoracic aorta is normal in caliber and demonstrates 4- vessel variant arch anatomy. No dissection is seen. Pulmonary vasculature: The main pulmonary arteries are mildly dilated suggesting pulmonary artery hypertension. There is thrombus within the distal right main pulmonary artery. This extends into the right upper, middle, and lower lobar branches. There is segmental and subsegmental pulmonary emboli within all of these arteries. There is also thrombus within the distal left main pulmonary artery which extends into the left upper and left lower lobe branches. Segmental and subsegmental pulmonary emboli are seen within the left upper lobe, the left lower lobe, and the lingula. Heart: The heart is enlarged and without pericardial effusion. The coronary arteries are densely calcified. Lungs and pleural spaces: Evaluation of the lung parenchyma is significantly degraded by motion artifact. There is elevation of the left hemidiaphragm with segmental atelectasis at the left lung base. No airspace consolidation or pleural effusion is identified. The trachea and central airways are clear. Mediastinum: There is no mediastinal lymphadenopathy. Hilary: Clear. Axillae: There is no axillary lymphadenopathy. Upper abdomen: A small hiatal hernia is noted. Partially visualized upper abdominal viscera is within normal limits. Skeletal structures: No lytic or blastic bony lesions are seen. Degenerative change is noted in the thoracic spine. IMPRESSION: 1. Extensive bilateral pulmonary embolus as above. 2. There is no airspace consolidation or pleural effusion. 3. Cardiomegaly. 4. Additional findings as above. ACT 112: Negative or not required by law. Electronically signed by: Toro Quan M.D. 01/28/2021 7:15 AM Venous Doppler Study 01/28/21 04:40 ULTRASOUND BILATERAL LOWER EXTREMITY VENOUS CLINICAL HISTORY: Pulmonary embolus. COMPARISON STUDY: No priors. TECHNIQUE: Real-time, grayscale, and color Doppler sonography of the deep veins of the right and left lower extremity was performed from the inguinal crease to the calf. Compression and augmentation were utilized. FINDINGS: Right lower extremity: There is no sonographic evidence of deep venous thrombosis in the right lower extremity. The common femoral, superficial femoral, and popliteal veins are patent and normally compressible. The greater saphenous vein and the profunda femoris vein at the junction with the common femoral vein are clear. The visualized calf veins are patent. Left lower extremity: Nonocclusive thrombus is present in the calf within one of the peroneal veins. The remaining calf vessels appear patent. No above knee deep venous thrombosis is seen in the left lower extremity. The common femoral, superficial femoral, and popliteal veins are patent and normally compressible. The greater saphenous vein and the profunda femoris vein at the junction with the common femoral vein are clear. IMPRESSION: 1. Nonocclusive deep venous thrombosis is identified in the left calf within 1 of the peroneal veins. 2. No additional foci of deep venous thrombosis are seen in the right or left lower extremity. ACT 112: Negative or not required by law. Electronically signed by: Toro Quan M.D. 01/28/2021 8:50 AM Medications Administered Current Inpatient Medications Acetaminophen (Acetaminophen 325 Mg Tab) 650 mg PO Q4H PRN PRN Reason: Pain or Fever Stop: 02/27/21 06:14 Aspirin (Aspirin 81 Mg Ectab) 81 mg PO HS JONNY Stop: 02/27/21 20:59 Atorvastatin Calcium (Atorvastatin 20 Mg Tab) 20 mg PO HS JONNY Stop: 02/27/21 20:59 Heparin Sodium/Dextrose (Heparin Sodium/Dextrose) 25,000 units in 500 mls @ 33 mls/hr IV .[id number] JONNY; Protocol Stop: 02/27/21 04:59 Last Titration: 01/28/21 12:02 Dose: 27 units/hr, 0.5 mls/hr Documented by: Promethazine HCl 12.5 mg/ (Sodium Chloride) 50.5 mls @ 202 mls/hr IV Q6H PRN PRN Reason: Nausea And Vomiting Stop: 02/27/21 06:14 Losartan Potassium (Losartan Potassium 50 Mg Tab) 50 mg PO HS JONNY Stop: 02/27/21 20:59 Tramadol HCl (Tramadol Hcl 50 Mg Tablet) 25 - 50 mg PO Q4H PRN PRN Reason: Pain Stop: 02/27/21 06:14 PG Care Time/CCT Total # of Minutes Spent Total Time Spent with Patient: Total time spent is greater than 50% in coordination of care (as documented) at patient's floor/unit and/or counseling patient: 65 minutes including discussion with patient and return visit with patient and his . Coding Level of Care Code 87833 Inpt Consult Level 5 Diagnoses Pulmonary embolism, bilateral I26.99 Acute hypoxemic respiratory failure J96.01 Elevated troponin R77.8 Time Spent (min) 65
[2021-01-28 18:19] LABS: Partial Thromboplastin Ratio 2.3
--- NOTE | 2021-01-28 18:21 | Hospitalist Progress Note ---
Date of Service January 28, 2021 Assessment & Plan (1) Acute hypoxemic respiratory failure: Plan: Acute hypoxic respiratory failure Acute bilateral pulmonary embolism Pulmonary hypertension Acute left lower extremity DVT -CTA: Extensive bilateral pulmonary embolus as above. There is no airspace consolidation or pleural effusion. Cardiomegaly. -Venous Doppler: Nonocclusive deep venous thrombosis is identified in the left calf within 1 of the peroneal veins. No additional foci of deep venous thrombosis are seen in the right or left lower extremity. -ECHO: Moderate concentric LVH. EF 60 to 65%. Abnormal septal wall motion consistent with RV pressure/volume overload, grade 1 diastolic dysfunction, right ventricle is moderately dilated, reduced RV systolic function with akinesis of the right ventricular free wall but preserved apical wall motion. Pulmonary hypertension with PA systolic pressure 54 mmHg -Continue supplemental oxygen Hypercoagulable work-up as outpatient Appreciate pulmonology input Continue IV heparin Transition to DOAC therapy as able Will need 2 step prior to discharge Troponin elevation Likely demand ischemia secondary to above Hypertension Continue home medication Hyperlipidemia on Lipitor Prediabetes HbA1c 6.1 DVT prophylaxis IV Heparin Code Status Full code Admission and Anticipated Discharge Date Admission Date: January 28, 2021 Subjective Patient is seen and examined at bedside Less dyspnea today Denies any chest pain, dizziness, nausea, abdominal pain Offers no other complaints Saturating 94% on 2 L supplemental oxygen Review of Systems Review of Systems: All systems reviewed & are unremarkable except as noted in Subjective Physical Exam Physical Exam: Physical Exam: Vitals signs as noted above General Appearance:Moderately built and nourished, no apparent distress Head: normocephalic, Atraumatic Eyes: normal inspection, EOMI Neck: supple, Trachea midline Respiratory/Chest: Normal breath sounds, CTA, No accessory muscle use Cardiovascular: S1, S2, No murmur Abdomen/GI:Soft, Non tender, Bowel sounds present Extremities/Musculoskeletal:normal inspection, no edema Neurologic/Psych:AAOX3, grossly no focal neurological deficits Skin: normal color, warm Results & Data Results & Data ([facility]) Vital Signs (Past 12 Hours) Vital Signs Temp Pulse Resp BP BP Pulse Ox 01/28/21 16:02 36.8 C 100 H 19 131/88 94 01/28/21 12:17 36.6 C 104 H 18 142/93 H 91 01/28/21 07:11 37.3 C 99 H 19 148/96 H 91 01/28/21 06:22 36.5 C 100 H 22 181/101 H 90 Laboratory Results Short CBC 01/28/21 Range/Units 00:38 WBC 14.33 H (4.8-10.8) K/uL Hgb 15.6 (14.0-18.0) g/dL Hct 45.7 (42-52) % Plt Count 263 (130-400) K/uL BMP 01/28/21 00:38 Sodium 138 Potassium 3.9 Chloride 107 Carbon Dioxide 23 BUN 19 H Creatinine 0.95 Glucose 131 H Calcium 9.3 Cardiac Enzymes 01/28/21 01/28/21 01/28/21 Range/Units 00:38 02:02 09:06 Troponin I 0.179 H* 0.215 H* 0.115 H* (0-0.045) ng/ml Liver Function 01/28/21 Range/Units 00:38 Total Bilirubin 0.7 (0.2-1) mg/dl AST 26 (15-37) U/L ALT 41 (12-78) U/L Alkaline Phosphatase 51 (45-117) U/L Albumin 3.7 (3.4-5.0) gm/dl
[2021-01-28 18:27] LABS: Partial Thromboplastin Time 60.3 Seconds (21.0-31.0)
[2021-01-28] MEDS ORDERED: ASPIRIN 81 MG ECTAB PO SCH (21:00)
[2021-01-28] MEDS ORDERED: LOSARTAN POTASSIUM 50 MG TAB PO SCH (21:00)
[2021-01-28] MEDS ORDERED: ATORVASTATIN 20 MG TAB PO SCH (21:00)
[2021-01-28] MEDS ORDERED: ACETAMINOPHEN 500 MG TAB PO PRN (22:17)
[2021-01-28] MEDS ORDERED: diphenhydrAMINE Capsule 25 MG CAP PO PRN (22:17)
[2021-01-29 06:02] LABS: Basophils # (auto) 0.03 K/uL (0-0.2); Basophils % (auto) 0.2 %; Eosinophils # (auto) 0.15 K/uL (0-0.5); Eosinophils % (auto) 1.2 %; Hematocrit (blood only) 41.9 % (42-52); Hemoglobin 14.1 g/dL (14.0-18.0); Immature Granulocytes # (auto) 0.04 K/uL (0.00-0.02); Immature Granulocytes % (auto) 0.3 %; Lymphocytes # (auto) 2.82 K/uL (1.2-3.4); Lymphocytes % (auto) 23.1 %; Mean Corpuscular Hgb Conc 33.7 g/dL (32-36); Mean Corpuscular Volume 86.2 fL (80-100); Mean Platelet Volume 11.1 fL (7.4-10.4); Monocytes % (auto) 10.7 %; Neutrophils # (auto) 7.85 K/uL (1.4-6.5); Neutrophils % (auto) 64.5 %; Platelet Count 242 K/uL (130-400); RDW Coefficient of Variation 13.9 % (11.5-14.5); RDW Standard Deviation 43.5 fL (36.4-46.3); Red Blood Count 4.86 M/uL (4.7-6.1); White Blood Count 12.19 K/uL (4.8-10.8)
[2021-01-29 06:20] LABS: Partial Thromboplastin Ratio 2.3
[2021-01-29 06:35] LABS: BUN Creatinine Ratio 17.9 (10-20); Calcium 8.8 mg/dl (8.5-10.1); Creatinine Clr Calc Pharmacy 97.6 ml/min; Est GFR (African American) 92.4 ml/min; Est GFR (Non-African American) 79.7 ml/min
[2021-01-29 06:38] LABS: Partial Thromboplastin Time 59.5 Seconds (21.0-31.0)
[2021-01-29] MEDS ORDERED: hydroCHLOROthiazide 25 MG TAB PO SCH (09:00)
--- NOTE | 2021-01-29 09:08 | Pulmonology Progress Note ---
Date of Service January 29, 2021 Assessment & Plan (1) Pulmonary embolism, bilateral: (2) Acute hypoxemic respiratory failure: (3) Elevated troponin: Plan: Impression: This is a 65-year-old male with extensive bilateral pulmonary emboli. Patient also has a nonocclusive popliteal DVT. He is doing well clinically on heparin. His echocardiogram did show RV strain with secondary pulmonary hypertension Recommendation: 1. Bilateral pulmonary emboli: Appears to be a relatively unprovoked event. Recommend at least 6 months of anticoagulation and at that point time the patient should be seen by pre sales technical consultant for thrombophilia evaluation to determine whether or not lifelong anticoagulation should be undertaken. Age-appropriate cancer screening should be conducted in the outpatient setting. Patient is doing well at this point time and can transition to oral anticoagulants. DOAC would be recommended. 2. Acute hypoxia: Secondary to extensive pulmonary emboli and possible pulmonary hypertension discussed with the patient that he may need to be discharged home with oxygen. Would recommend two-step evaluation prior to discharge. 3. Pulmonary hypertension: This appears to be secondary to right heart strain from bilateral pulmonary emboli. Recommend follow-up echocardiogram in 3 months to look at RV pressures as his PE is treated. He is at risk for chronic thromboembolic pulmonary hypertension. We would be happy to see him back in the pulmonary clinic if needed If the patient is able to ambulate in the hallway without symptoms and his oxygen requirement can be assessed prior to discharge, the patient may be eligible to discharge from the hospital today with follow-up with his outpatient primary care provider within the next week. Please contact us if we can be of additional assistance. Pulmonary will sign off at this point time Admission and Anticipated Discharge Date Admission Date: January 28, 2021 Subjective Patient seen and examined. EMR reviewed. The patient states that he is doing well clinically. He is been up to use the restroom and is not noted any chest pain palpitations syncope or presyncope. He is tolerating the heparin infusion well without any bleeding complications. No chest pain or lower extremity edema. He is tolerating a diet. He overall feels well and is asking about the possibility of going home. He remains on supplemental oxygen. Review of Systems Review of Systems: Complete 12 point review of systems negative except as noted in HPI Physical Exam Constitutional: WD/WN, vitals as above Neck: trachea midline, no thyromegaly Respiratory: normal respiratory effort, lungs clear to auscultation Cardiovascular: RRR, no murmur, no edema Gastrointestinal (Abdomen): normal bowel sounds, soft, nontender, no hepatosplenomegaly Musculoskeletal: Extremities: extremities normal to inspection Skin: no rashes, warm and dry Neurologic: Nonfocal exam Lymphatic: no cervical lymphadenopathy Results & Data Results & Data ([facility]) Vital Signs (Past 12 Hours) Vital Signs Temp Pulse Pulse Resp BP Pulse Ox 01/29/21 08:00 83 01/29/21 07:13 36.6 C 88 20 132/85 93 01/29/21 03:41 36.8 C 86 19 122/78 94 01/28/21 23:37 94 01/28/21 23:31 92 01/28/21 23:16 36.5 C 104 H 18 119/78 89 L Laboratory Results 01/29/21 05:28 01/29/21 05:28 BNP 885 Troponin peaked and downtrending Diagnostic Findings Echocardiogram performed yesterday showed an EF of 60 to 65% with grade 1 diastolic dysfunction. Right ventricle was moderately dilated with reduced RV systolic function. PA systolic pressure estimated at 57 with a right atrial pressure of 8. PG Care Time/CCT Total # of Minutes Spent Total Time Spent with Patient: Total time spent is greater than 50% in coordination of care (as documented) at patient's floor/unit and/or counseling patient: Coding Level of Care Code 86130 Subseq Hosp Care Lvl 3 Diagnoses Pulmonary embolism, bilateral I26.99 Acute hypoxemic respiratory failure J96.01 Elevated troponin R77.8
--- NOTE | 2021-01-29 11:02 | Electrocardiogram Report ---
Test Reason : Blood Pressure : / mmHG Vent. Rate : 085 BPM Atrial Rate : 085 BPM P-R Int : 224 ms QRS Dur : 098 ms QT Int : 436 ms P-R-T Axes : 044 019 -08 degrees QTc Int : 518 ms Sinus rhythm with 1st degree A-V block T wave abnormality, consider inferior ischemia T wave abnormality, consider anterior ischemia Prolonged QT Abnormal ECG When compared with ECG of 28-JAN-2021 01:09, T wave inversion now evident in Anterior leads QT has shortened Confirmed by Tristen White ([id number]) on 01/29/2021 11:02:17 AM Referred By: REFERRED SELF Confirmed By:Tristen White
[2021-01-29] MEDS ORDERED: APIXABAN 5 MG TABLET PO SCH (11:15)
--- NOTE | 2021-01-29 12:48 | Hospitalist Progress Note ---
Date of Service January 29, 2021 Assessment & Plan (1) Acute hypoxemic respiratory failure: Plan: Acute hypoxic respiratory failure Acute bilateral pulmonary embolism Pulmonary hypertension Acute left lower extremity DVT -CTA: Extensive bilateral pulmonary embolus as above. There is no airspace consolidation or pleural effusion. Cardiomegaly. -Venous Doppler: Nonocclusive deep venous thrombosis is identified in the left calf within 1 of the peroneal veins. No additional foci of deep venous thrombosis are seen in the right or left lower extremity. -ECHO: Moderate concentric LVH. EF 60 to 65%. Abnormal septal wall motion consistent with RV pressure/volume overload, grade 1 diastolic dysfunction, right ventricle is moderately dilated, reduced RV systolic function with akinesis of the right ventricular free wall but preserved apical wall motion. Pulmonary hypertension with PA systolic pressure 54 mmHg -Continue supplemental oxygen Hypercoagulable work-up as outpatient Appreciate pulmonology input IV heparin>> Transitioned to Eliquis 2 step pending Troponin elevation Likely demand ischemia secondary to above Hypertension Continue home medication Hyperlipidemia on Lipitor Prediabetes HbA1c 6.1 DVT prophylaxis Eliquis Code Status Full code Admission and Anticipated Discharge Date Admission Date: January 28, 2021 Subjective Patient is seen and examined at bedside States feeling a lot better today Denies any dyspnea, pleuritic pain Offers no other complaints No bleeding issues Saturating low 90s on 2 L supplemental oxygen Plan for2 step today Review of Systems Review of Systems: All systems reviewed & are unremarkable except as noted in Subjective Physical Exam Physical Exam: Physical Exam: Vitals signs as noted above General Appearance:Moderately built and nourished, no apparent distress Head: normocephalic, Atraumatic Eyes: normal inspection, EOMI Neck: supple, Trachea midline Respiratory/Chest: Normal breath sounds, CTA, No accessory muscle use Cardiovascular: S1, S2, No murmur Abdomen/GI:Soft, Non tender, Bowel sounds present Extremities/Musculoskeletal:normal inspection, no edema Neurologic/Psych:AAOX3, grossly no focal neurological deficits Skin: normal color, warm Results & Data Results & Data ([facility]) Vital Signs (Past 12 Hours) Vital Signs Temp Pulse Pulse Resp BP Pulse Ox 01/29/21 10:35 36.5 C 87 18 126/78 93 01/29/21 08:00 83 01/29/21 07:13 36.6 C 88 20 132/85 93 01/29/21 03:41 36.8 C 86 19 122/78 94 Laboratory Results Short CBC 01/29/21 Range/Units 05:28 WBC 12.19 H (4.8-10.8) K/uL Hgb 14.1 (14.0-18.0) g/dL Hct 41.9 L (42-52) % Plt Count 242 (130-400) K/uL BMP 01/29/21 05:28 Sodium 137 Potassium 4.0 Chloride 106 Carbon Dioxide 27 BUN 18 Creatinine 1.00 Glucose 111 H Calcium 8.8
--- NOTE | 2021-01-29 12:54 | Discharge Summary ---
Date of Service January 29, 2021 Admission HPI Per Admitting Provider History obtained from patient and records. Medical history significant for hypertension, hyperlipidemia. 4 days ago, patient noted shortness of breath worse on exertion while helping out at a family gathering at home. No cough symptoms. Although patient thinks he may have the flu. No chest pain. No leg pain/swelling. No recent illness leading to immobility or vehicular travel of prolonged duration. No unusual weight loss. No known recent COVID-19 contacts. Patient completed COVID-19 vaccination. Patient seen at PCPs office yesterday. O2 sats 90% on room air. Patient tachycardic. Outpatient CXR showed elevated left hemidiaphragm with hazy bibasilar opacities which may represent pneumonia. Outpatient COVID-19 test requested by PCP. Patient consulted ER due to worsening symptoms. Ceftriaxone given at the ER for possible sepsis. IV Heparin later initiated with note of pulmonary embolism on CT. No prior personal/known family history of blood clots as per patient account. 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 Admission Exam Per Admitting Provider Physical Exam Physical Exam: GENERAL: Comfortable, obese, slightly anxious, no respiratory distress SKIN: Normal color, warm HEENT: Sunburnt face sparing periorbital areas, pink palpebral conjunctivae, no ptosis, dry buccal mucosa, nasal cannula in place NECK : Supple, short neck, no tenderness CHEST : Decreased breath sounds , no tenderness HEART : Tachycardic, no obvious murmurs ABDOMEN: Some distention, nontender EXTREMITIES : No LE swelling/tenderness, no other conspicuous deformities noted NEUROLOGIC : Coherent, no facial asymmetry, no other gross focality Principal Diagnosis Acute hypoxic respiratory failure Acute bilateral pulmonary embolism Pulmonary hypertension Acute left lower extremity deep vein thrombosis Discharge Data Allergies Allergy/AdvReac Type Severity Reaction Status Date / Time Penicillins Allergy Unknown HAPPENED Verified 01/28/21 01:25 AN SMALL CHILD Consultations 01/28/21 02:08 ED Decision to Admit Stat 01/28/21 09:22 Consult Pulmonology Routine Ordered Studies 01/28/21 03:10 CT angio chest PE protocol Urgent 10/21/21 04:40 US venous doppler LE BI Routine Hospital Course (1) Acute hypoxemic respiratory failure: Acute hypoxic respiratory failure Acute bilateral pulmonary embolism Pulmonary hypertension Acute left lower extremity DVT -CTA: Extensive bilateral pulmonary embolus as above. There is no airspace consolidation or pleural effusion. Cardiomegaly. -Venous Doppler: Nonocclusive deep venous thrombosis is identified in the left calf within 1 of the peroneal veins. No additional foci of deep venous thrombosis are seen in the right or left lower extremity. -ECHO: Moderate concentric LVH. EF 60 to 65%. Abnormal septal wall motion consistent with RV pressure/volume overload, grade 1 diastolic dysfunction, right ventricle is moderately dilated, reduced RV systolic function with akinesis of the right ventricular free wall but preserved apical wall motion. Pulmonary hypertension with PA systolic pressure 54 mmHg -Continue supplemental oxygen Hypercoagulable work-up as outpatient Appreciate pulmonology input IV heparin>> Transitioned to Eliquis 2 step: Needs 2 L of supplemental oxygen with activity. Troponin elevation Likely demand ischemia secondary to above Hypertension Continue home medication Hyperlipidemia on Lipitor Prediabetes HbA1c 6.1 DVT prophylaxis Eliquis Code Status Full code Total Time Total Time Spent Total Time Spent (In Minutes): 44 minutes Discharge Plan Discharge Items Patient Disposition: Home - Self-Care Reason For Visit: RESP FAILURE Discharge Diagnosis: Acute hypoxic respiratory failure Acute bilateral pulmonary embolism Pulmonary hypertension Acute left lower extremity deep vein thrombosis Condition on Discharge: Good Activity: Per Instructions section Exercise/Sports: Wait until after follow-up appointment Non-emergency contact: Primary Care Provider Call non-emergency contact if: you have any medication questions, your symptoms worsen, your pain is not controlled, your pain is concerning for you and you have a fever Follow-up/Referrals: Jeyson King MD [Primary Care Provider] - (Date & Time 02/08/2021 3:00 PM Provider Jeyson King MD [facility] ) Diet: Heart Healthy Addtl Attending Provider Instructions: Follow-up with your primary care physician on 02/08/2021 3:00 PM Get Blood Test (hypercoagulable work-up) as outpatient to evaluate risk factors for clotting. Apixaban (Eliquis): Start taking apixaban 10 mg twice a day for 1 week, then transition to 5 mg twice a day. Duration of anticoagulation therapy to be determined by your primary care physician. Use oxygen via nasal cannula 2 L with activity as advised. Seek immediate medical attention if your symptoms reoccur or worsen Please take all medications as instructed on discharge list below. Please call if you have any questions or problems. You can reach a [facility] hospitalist on duty at [facility] 24 hours a day by calling [phone] Pending Studies at Discharge: No Stand-Alone Forms: My [facility], Smoking Cessation Medications and DC Order Prescriptions: New Eliquis 5 mg (74 tabs) tablets,dose pack 5 mg PO UD Qty: 74 RF: 1 Continued atorvastatin 20 mg tablet 20 mg PO HS RF: 0 aspirin 81 mg Tablet,Delayed Release (Dr/Ec) 81 mg PO HS RF: 0 losartan-hydrochlorothiazide 50-12.5 mg tablet 1 tab PO QAM RF: 0 Discharge Orders: Discharge Order (Routine); Ordered 01/29/21 Ordered By: Shon Guerrero/Other Patient Handouts: A1C, 5 Steps for Eating Healthier, Exercise: Why Fitness Matters Admission Data Admit Date/Time: 01/28/21 02:43 Attending Provider: Shon Cruz Admit Provider: Brady Bowman Primary Care Provider: Jeyson King Other Providers: Brady Bowman ; Ernesto Cervantes
== END 2021-01-29 16:17 | disposition home or self-care (01) | DRG 175 ==
LOC: ED 23:42 → 2S 01-28 02:43